=== PATIENT | male | born 1955 | race Caucasian/White ===

== ENCOUNTER → 2017-07-24 | Outpatient (CLI) | payer BC | END | disposition home or self-care (01) | LOC: RAD 14:25 | PROVIDERS: ATTEND Orthopaedic Surgery | DX: S72.142A Displaced intertrochanteric fracture of left femur, initial encounter for closed fracture (principal); M16.0 Bilateral primary osteoarthritis of hip; X58.XXXA Exposure to other specified factors, initial encounter; Y93.89 Activity, other specified; Y92.89 Other specified places as the place of occurrence of the external cause; Y99.8 Other external cause status | CPT/HCPCS: 72192 ==